=== PATIENT | female | born 1970 | race Caucasian/White ===

== ENCOUNTER 2020-02-18 00:23 | Emergency (ER) | payer OTHER ==
[~2020-02-18] VITALS: Ht 160 cm; Wt 52.2 kg
[~2020-02-18 00:23] MED LIST: CHL4PW PO; POT20T PO; Pantoprazole Sodium Sesquihydr PO
[2020-02-18 06:00] VITALS: BP 104/61
== END 2020-02-18 08:05 | disposition home or self-care (01) ==
LOC: ER 00:23
DX: T81.31XA Disruption of external operation (surgical) wound, not elsewhere classified, initial encounter (principal); Z98.82 Breast implant status; Z79.899 Other long term (current) drug therapy; X58.XXXA Exposure to other specified factors, initial encounter; Y93.89 Activity, other specified; Y92.89 Other specified places as the place of occurrence of the external cause; Y99.8 Other external cause status